=== PATIENT | female | born 1955 | race Two or more races ===

== ENCOUNTER 2025-01-26 08:30 | Outpatient (RCR) | payer MEDICARE, MEDICAID, SELFPAY ==
--- NOTE | 2025-01-25 08:30 | XR_ITS ---
Examination: Nuclear medicine thyroid uptake and scan Date and time: January 25, 2025 0732 hours INDICATIONS: Diagnosis nontoxic multinodular goiter, patient states right-sided lump and swelling in the neck 3 weeks TECHNIQUE AND FINDINGS: Oral administration 29 uCi I-123 6 hour 24 hour uptake values recorded as well as thyroid scans 6 hour uptake 6.5% normal range 6-24% 24 hour uptake 21.7% normal range 10-36% Homogeneous thyroid scans IMPRESSION: Negative study
== END 2025-01-31 23:59 | disposition home or self-care (01) ==
LOC: SNUC 08:30
PROVIDERS: PCP Physician Assistant; Referring Provider Physician Assistant; Visit Provider Physician Assistant
DX: E04.2 Nontoxic multinodular goiter (principal)
CPT/HCPCS: 78013; A9516

== ENCOUNTER → 2025-03-03 | Outpatient (CLI) | payer MEDICARE, MEDICAID, SELFPAY ==
--- NOTE | 2025-03-03 10:00 | XR_ITS ---
Examination: CT brain with intravenous contrast. 2-D sagittal coronal reconstructions 3-D bone reconstructions Date and time: February 23, 2025 at 0959 hrs. Indications: Headaches aeration one month. Technique And Findings: CT axial brain images obtained post intravenous ministration 60 cc Isovue-370 Ventricles normal in size and configuration. Extra-axial enhancing lesion at the left parietal convexity, 16 x 14 x 22 mm No mass effect upon the ventricular system Cranial vault is intact Fourth ventricle midline Impression: 16 x 14 x 22 mm enhancing lesion left parietal convexity, differential would include meningioma Recommend MRI brain follow-up pre and postcontrast
--- NOTE | 2025-03-03 10:30 | XR_ITS ---
Examination: CT soft tissue neck, with intravenous contrast. 2-D coronal reconstructions. 2-D sagittal reconstructions. Date and time of exam :March 03, 2025 0959 hrs. Indications: Difficulty swallowing, sore throat enlarged lymph nodes in the neck note is beginning one month ago. CTDI: vol (mGy):9.31 DLP: (mGycm):234 Technique: 1.25 mm axial sections of the neck of the obtained. Coronal and sagittal reconstructions have been obtained. Intravenous contrast administered 60 cc Isovue-370. Low dose protocols were performed. One or more of the following dose reduction techniques were used; automated exposure control, adjustment of the mA and/or KV according to patient size, use of iterative reconstruction technique. Findings: Maxillary antra are clear Symmetrical nasopharynx oropharynx Symmetrical parotid and submandibular glands. Bilateral carotid triangle lymph nodes, the largest on the left side 10 mm The larynx appears normal Bilateral thyroid nodules, the largest on the right side 9 mm Normal epiglottis Lung apices clear Impression: Nonspecific cervical lymphadenopathy Bilateral thyroid nodules, consider dedicated thyroid sonography follow-up
== END | disposition home or self-care (01) ==
PROVIDERS: Referring Provider Physician Assistant; Visit Provider Physician Assistant
DX: G93.9 Disorder of brain, unspecified (principal); R59.0 Localized enlarged lymph nodes; E04.2 Nontoxic multinodular goiter
CPT/HCPCS: 70460; 70491; A4649; Q9967

== ENCOUNTER → 2025-03-28 | Outpatient (CLI) | payer MEDICARE, MEDICAID, SELFPAY ==
--- NOTE | 2025-03-28 12:00 | XR_ITS ---
Examination: Bone densitometry Date and time of exam:March 28, 2025 1228 hours INDICATIONS: Hysterectomy age 41 mm arthritis diagnosis, personal history osteoporosis Technique: Lumbar spine and hip total bone mineralization values of an calculated. Peak reference and age match control results have been displayed. Findings: Lumbar spine total bone mineralization is0.667 gm/cm2. This is 3.5 standard deviations below peak reference. This is 1.3 standard deviations below age-matched controls. Hip total bone mineralization is 0.702 gm/cm2 This is 1.9 standard deviations below peak reference. This is 0.5 standard deviations below age-matched controls Impression: There is osteoporosis based on lumbar spine measurements. There is osteoporosis based on hip measurements Lumbar mineralization is decreased 6.4% compared with 03/24/2023 Hip mineralization is decreased 19.8% compared with 03/24/2023
== END | disposition home or self-care (01) ==
LOC: CDIM 11:35
PROVIDERS: Referring Provider Physician Assistant; Visit Provider Physician Assistant
DX: M81.0 Age-related osteoporosis without current pathological fracture (principal)
CPT/HCPCS: 77080

== ENCOUNTER → 2025-04-23 | Outpatient (CLI) | payer MEDICARE, MEDICAID, SELFPAY ==
--- NOTE | 2025-04-23 14:00 | XR_ITS ---
Examination: MRI of brain without intravenous contrast. MRI brain with intravenous contrast. Date and time of exam: April 23, 2025, 1357 hours INDICATIONS: CT brain examination March 03, 2000 2516 x 14 x 14 mm enhancing lesion left parietal convexity Technique: Multiple axial and sagittal images of the brain to been obtained. Siemens high-resolution 1.52 Jeri short bore scanner utilized. Sagittal sections, T1 weighted images, TR 500, TE 14, are performed. Axial sections proton-density and T2-weighted images have been obtained. Inversion recovery axial images, TR 9260, TE 111, TR 2500. Diffusion weighted images, axial sections, TR 4800, TE 128, B value 1000. Axial sections, ADC map, TR 4800, TE 128. Axial and coronal images were also obtained post 10 cc gadolinium administered intravenously. Findings:: Enlargement of the sella turcica is not present. The optic chiasm and infundibular stalk are not remarkable. There is no localized enlargement of the medulla or maryanne. Fourth ventricle and cerebellar tonsils appear normal in position. No subacute area of hemorrhage density is seen. Fourth ventricle is midline. Mass in the cerebellopontine angle region is not evident. 7th and 8th nerve complexes exhibit symmetry Globes are symmetrical Orbital musculature including medial lateral rectus muscles do not exhibit abnormality Increased white matter signal is moderate Effacement of the cortical sulcal markings is not identified. Mass effect upon the ventricular system is not identified. Diffusion-weighted images demonstrate no focus of restricted diffusion Contrast images demonstrate 17 x 18 x 10 mm left parietal convexity tumor Impression: 17 x 18 x 10 mm left parietal enhancing convexity tumor, most consistent with meningioma
== END | disposition home or self-care (01) ==
LOC: SMRI 04-28 09:51
PROVIDERS: PCP Physician Assistant; Referring Provider Physician Assistant; Visit Provider Physician Assistant
DX: D49.6 Neoplasm of unspecified behavior of brain (principal)
CPT/HCPCS: 70553; A9577

== ENCOUNTER → 2025-05-02 | Outpatient (CLI) | payer MEDICARE, MEDICAID, SELFPAY ==
--- NOTE | 2025-05-02 10:30 | XR_ITS ---
Examination: Screening digital mammography, bilateral Computer aided detection 3-D breast Tomosynthesis, bilateral Date and time of exam: May 02, 2025, 1026 hours Compared to mammograms dating to October 01, 2017 Indication: Screening Technique: Nonmagnified MLO, CC views of the breasts to been obtained, reconstructed from 3-D Tomosynthesis images. R2 computer aided detection program utilized for evaluation of suspicious masses and/or abnormal calcifications. 3-D Tomosynthesis images obtained. Findings: Scattered areas of fibroglandular density. Benign calcifications. No multiple suspicious masses Impression: BI-RADS category II: Benign Findings. Recommend 1 year follow-up mammogram.
== END | disposition home or self-care (01) ==
PROVIDERS: PCP Physician Assistant; Referring Provider Physician Assistant; Visit Provider Physician Assistant
DX: Z12.31 Encounter for screening mammogram for malignant neoplasm of breast (principal); R92.323 Mammographic fibroglandular density, bilateral breasts; R92.1 Mammographic calcification found on diagnostic imaging of breast
CPT/HCPCS: 77063; 77067